=== PATIENT | female | born 1965 | race Caucasian/White ===

== ENCOUNTER → 2017-02-24 | Outpatient (CLI) | payer SELFPAY ==
[~2017-02-24] MED LIST: ATIVAN0.5 MG PO
== END | disposition home or self-care (01) ==
LOC: RESCLI 03:58
DX: S89.91XA Unspecified injury of right lower leg, initial encounter (principal); X58.XXXA Exposure to other specified factors, initial encounter; Y93.89 Activity, other specified; Y92.89 Other specified places as the place of occurrence of the external cause; Y99.8 Other external cause status

== ENCOUNTER → 2017-02-24 | Outpatient (CLI) | payer SELFPAY | END | disposition home or self-care (01) | LOC: RAD 16:38 | DX: M17.11 Unilateral primary osteoarthritis, right knee (principal) ==

== ENCOUNTER → 2017-03-17 | Outpatient (CLI) | payer SELFPAY | END | disposition home or self-care (01) | LOC: RESCLI 03:02 | DX: M79.89 Other specified soft tissue disorders (principal); E66.01 Morbid (severe) obesity due to excess calories; E78.5 Hyperlipidemia, unspecified; K21.9 Gastro-esophageal reflux disease without esophagitis; Z88.0 Allergy status to penicillin; Z88.1 Allergy status to other antibiotic agents; Z88.8 Allergy status to other drugs, medicaments and biological substances; Z91.013 Allergy to seafood ==

== ENCOUNTER → 2017-03-17 | Outpatient (CLI) | payer SELFPAY | END | disposition home or self-care (01) | LOC: US 12:20 | DX: M79.89 Other specified soft tissue disorders (principal); R60.0 Localized edema ==

== ENCOUNTER → 2017-03-24 | Outpatient (CLI) | payer SELFPAY | END | disposition home or self-care (01) | LOC: RESCLI 03:39 | DX: S89.91XD Unspecified injury of right lower leg, subsequent encounter (principal); I10 Essential (primary) hypertension; K21.9 Gastro-esophageal reflux disease without esophagitis; E78.5 Hyperlipidemia, unspecified; G62.9 Polyneuropathy, unspecified; Z88.0 Allergy status to penicillin; Z88.1 Allergy status to other antibiotic agents; Z91.013 Allergy to seafood; Z91.040 Latex allergy status; X58.XXXD Exposure to other specified factors, subsequent encounter ==

== ENCOUNTER → 2017-04-09 | Outpatient (CLI) | payer SELFPAY | END | disposition home or self-care (01) | LOC: MRI 02:56 | DX: M17.11 Unilateral primary osteoarthritis, right knee (principal); S83.241A Other tear of medial meniscus, current injury, right knee, initial encounter; X58.XXXA Exposure to other specified factors, initial encounter; Y93.89 Activity, other specified; Y92.89 Other specified places as the place of occurrence of the external cause; Y99.8 Other external cause status ==

== ENCOUNTER → 2017-04-24 | Outpatient (CLI) | payer SELFPAY | END | disposition home or self-care (01) | LOC: CANPRECLI → ORTHO 01:53 | DX: Z53.9 Procedure and treatment not carried out, unspecified reason (principal) ==

== ENCOUNTER → 2017-05-04 | Outpatient (CLI) | payer SELFPAY | END | disposition home or self-care (01) | LOC: RESCLI 03:13 | DX: S83.289D Other tear of lateral meniscus, current injury, unspecified knee, subsequent encounter (principal); M54.9 Dorsalgia, unspecified; E66.01 Morbid (severe) obesity due to excess calories; E78.5 Hyperlipidemia, unspecified; Z88.0 Allergy status to penicillin; Z88.1 Allergy status to other antibiotic agents; Z91.013 Allergy to seafood; Z91.040 Latex allergy status; Z88.8 Allergy status to other drugs, medicaments and biological substances; X58.XXXD Exposure to other specified factors, subsequent encounter ==

== ENCOUNTER → 2017-08-10 | Outpatient (CLI) | payer SELFPAY ==
[2017-08-10 09:32] LABS: BASO # 0.1 10*3/uL (0.0-0.1); BASO % 1.3 % (0.0-1.0); EOS # 0.2 10*3/uL (0.0-0.4); EOS % 2.2 % (1.0-4.0); HEMATOCRIT 41.3 % (37.0-47.0); HEMOGLOBIN 13.6 g/dl (12.0-16.0); LYMPH # 2.6 10*3/uL (1.3-4.4); LYMPH % 26.6 % (27.0-41.0); MEAN CELL VOLUME 96.9 fl (81.0-99.0); MEAN CORPUSCULAR HGB 31.9 pg (27.0-31.0); MEAN CORPUSCULAR HGB CONC 32.9 g/dl (33.0-37.0); MEAN PLATELET VOLUME 11.1 fl (9.6-12.3); MONO # 0.5 10*3/uL (0.1-1.0); MONO % 5.6 % (3.0-9.0); NEUT # 6.1 10*3/uL (2.3-7.9); PLATELET COUNT AUTOMATED 322 10*3/uL (130-400); RED BLOOD COUNT 4.26 10*6/uL (4.10-5.10); RED CELL DISTRI WIDTH 12.7 % (0-14.5); WHITE BLOOD COUNT 9.6 10*3/uL (4.8-10.8)
[2017-08-10 10:01] LABS: CHLORIDE 103 mmol/L (98-107); POTASSIUM 4.7 mmol/L (3.5-5.1); SODIUM 139 mmol/L (136-145)
[2017-08-10 10:25] LABS: ALBUMIN 3.9 gm/dl (3.1-4.5); ALKALINE PHOSPHATASE 92 U/L (45-117); BUN 18 mg/dl (7-24); CHOLESTEROL 233 mg/dL (<200); CREATININE 0.75 mg/dL (0.55-1.02); HDL CHOLESTEROL 60 mg/dl (40-60); LDL CHOLESTEROL 138 mg/dL (9-159); SGOT/AST 19 IU/L (3-35); SGPT/ALT 26 U/L (12-78); TOTAL PROTEIN 8.3 gm/dL (6.4-8.2); TRIGLYCERIDES 175 mg/dl (<150); VLDL CHOLESTEROL 35 mg/dL (6-40)
== END | disposition home or self-care (01) ==
LOC: LAB 08:56
PROVIDERS: Hospitalist
DX: E78.5 Hyperlipidemia, unspecified (principal); E66.01 Morbid (severe) obesity due to excess calories; R73.09 Other abnormal glucose; K76.89 Other specified diseases of liver

== ENCOUNTER → 2017-08-17 | Outpatient (CLI) | payer SELFPAY | END | disposition home or self-care (01) | LOC: RESCLI 02:38 | DX: M54.9 Dorsalgia, unspecified (principal); E66.01 Morbid (severe) obesity due to excess calories; E78.5 Hyperlipidemia, unspecified; G62.9 Polyneuropathy, unspecified; M62.838 Other muscle spasm; E53.8 Deficiency of other specified B group vitamins; M25.512 Pain in left shoulder; G89.29 Other chronic pain; Z88.0 Allergy status to penicillin; Z88.1 Allergy status to other antibiotic agents; Z88.8 Allergy status to other drugs, medicaments and biological substances; Z91.013 Allergy to seafood; Z91.040 Latex allergy status ==

== ENCOUNTER → 2017-12-23 | Outpatient (CLI) | payer SELFPAY | END | disposition home or self-care (01) | LOC: RESCLI 01:34 | DX: Z13.820 Encounter for screening for osteoporosis (principal); I10 Essential (primary) hypertension; M25.50 Pain in unspecified joint; E66.01 Morbid (severe) obesity due to excess calories; K21.9 Gastro-esophageal reflux disease without esophagitis; E78.5 Hyperlipidemia, unspecified; K58.8 Other irritable bowel syndrome; M54.5 Low back pain; G89.29 Other chronic pain; Z88.0 Allergy status to penicillin; Z78.0 Asymptomatic menopausal state; M54.2 Cervicalgia; R53.1 Weakness ==

== ENCOUNTER → 2018-04-01 | Outpatient (CLI) | payer SELFPAY | END | disposition home or self-care (01) | LOC: RESCLI 01:37 | DX: Z00.01 Encounter for general adult medical examination with abnormal findings (principal); L50.8 Other urticaria; M54.5 Low back pain; E66.01 Morbid (severe) obesity due to excess calories; K21.9 Gastro-esophageal reflux disease without esophagitis; E78.5 Hyperlipidemia, unspecified; I10 Essential (primary) hypertension; K58.8 Other irritable bowel syndrome; Z79.899 Other long term (current) drug therapy; Z88.0 Allergy status to penicillin; Z88.8 Allergy status to other drugs, medicaments and biological substances ==

== ENCOUNTER → 2018-04-06 | Outpatient (CLI) | payer SELFPAY | END | disposition home or self-care (01) | LOC: CT 12:29 | DX: Z00.00 Encounter for general adult medical examination without abnormal findings (principal); M54.5 Low back pain ==

== ENCOUNTER → 2018-04-15 | Outpatient (CLI) | payer SELFPAY ==
[2018-04-15 08:47] LABS: BASO # 0.1 10*3/uL (0.0-0.1); BASO % 1.2 % (0.0-1.0); EOS # 0.3 10*3/uL (0.0-0.4); EOS % 2.7 % (1.0-4.0); HEMATOCRIT 41.3 % (37.0-47.0); LYMPH # 3.1 10*3/uL (1.3-4.4); MEAN CELL VOLUME 98.8 fl (81.0-99.0); MEAN CORPUSCULAR HGB 31.1 pg (27.0-31.0); MEAN CORPUSCULAR HGB CONC 31.5 g/dl (33.0-37.0); MONO # 0.7 10*3/uL (0.1-1.0); MONO % 6.8 % (3.0-9.0); NEUT # 5.6 10*3/uL (2.3-7.9); NEUT % 57.1 % (47.0-73.0); PLATELET COUNT AUTOMATED 301 10*3/uL (130-400); RED BLOOD COUNT 4.18 10*6/uL (4.10-5.10); RED CELL DISTRI WIDTH 13.5 % (0-14.5); WHITE BLOOD COUNT 9.7 10*3/uL (4.8-10.8)
[2018-04-15 09:27] LABS: ALBUMIN 3.7 gm/dl (3.1-4.5); ALKALINE PHOSPHATASE 68 U/L (45-117); BUN 15 mg/dl (7-24); CHLORIDE 104 mmol/L (98-107); POTASSIUM 4.2 mmol/L (3.5-5.1); SGOT/AST 21 IU/L (3-35); SGPT/ALT 34 U/L (12-78); SODIUM 139 mmol/L (136-145); TOTAL PROTEIN 7.5 gm/dL (6.4-8.2)
== END | disposition home or self-care (01) ==
LOC: LAB 08:02
PROVIDERS: Internal Medicine
DX: Z00.01 Encounter for general adult medical examination with abnormal findings (principal); E78.5 Hyperlipidemia, unspecified; E66.01 Morbid (severe) obesity due to excess calories; I10 Essential (primary) hypertension; Z79.899 Other long term (current) drug therapy; Z88.0 Allergy status to penicillin

== ENCOUNTER → 2018-06-10 | Outpatient (CLI) | payer SELFPAY | END | disposition home or self-care (01) | LOC: RESCLI 04:41 | DX: K21.9 Gastro-esophageal reflux disease without esophagitis (principal); L50.8 Other urticaria; M54.5 Low back pain; E78.5 Hyperlipidemia, unspecified; I10 Essential (primary) hypertension; K58.8 Other irritable bowel syndrome; E66.01 Morbid (severe) obesity due to excess calories; Z79.899 Other long term (current) drug therapy ==

== ENCOUNTER → 2018-09-23 | Outpatient (CLI) | payer SELFPAY ==
[~2018-09-23] MED LIST changes: +B-12500 MC1 PO; +CELECOXIB200 M1 PO; +CLARITIN10 MG PO; +NEURONTIN300 MG PO; +PEPCID20 MG PO; +TRICOR48 MG PO
== END | disposition home or self-care (01) ==
LOC: RESCLI 01:55
DX: K21.9 Gastro-esophageal reflux disease without esophagitis (principal); R06.02 Shortness of breath; M54.5 Low back pain; E78.5 Hyperlipidemia, unspecified; I10 Essential (primary) hypertension; K58.8 Other irritable bowel syndrome; E66.01 Morbid (severe) obesity due to excess calories; Z79.82 Long term (current) use of aspirin

== ENCOUNTER → 2018-10-05 | Outpatient (CLI) | payer SELFPAY ==
--- NOTE | 2018-10-05 10:40 | NUR ---
INFORMED SIGNED CONSENT OBTAINED FOR LEXISCAN STRESS TEST WITH DR SCHOFIELD. RESTING EKG NSR HR 91 BP 122/80 IN SUPINE POSTION, STANDING HR 99 BP 116/76. PT COMPLETED 3:15 A RENUKA PROTOCOL WITH PT COMPLETING STAGE I AT 2.5 MPH AND A 10% GRADE. PT REACHED A PEAK HR OF 154 WHICH REPRESENTS 92% OF PREDICTED MAXIMUM AND A PEAK BP OF 140/62. PT HAD ONE COUPLET IN RECOVERY. NO ST CHANGES. TEST TERMINATED DUE TO FATIUGE. LAST RECOVERY HR OF 109 BP 126/74. PT IN STABLE CONDITION, AWAITNG NUCLEAR IMAGES.
== END | disposition home or self-care (01) ==
LOC: CARD 01:46
DX: R06.02 Shortness of breath (principal)

== ENCOUNTER → 2018-10-08 | Outpatient (CLI) | payer SELFPAY ==
[2018-10-08 09:40] LABS: BASO # 0.2 10*3/uL (0.0-0.1); BASO % 1.8 % (0.0-1.0); EOS # 0.2 10*3/uL (0.0-0.4); EOS % 2.7 % (1.0-4.0); HEMATOCRIT 41.5 % (37.0-47.0); HEMOGLOBIN 13.3 g/dl (12.0-16.0); LYMPH # 2.8 10*3/uL (1.3-4.4); LYMPH % 32.9 % (27.0-41.0); MEAN CELL VOLUME 99.5 fl (81.0-99.0); MEAN CORPUSCULAR HGB 31.9 pg (27.0-31.0); MEAN PLATELET VOLUME 10.9 fl (9.6-12.3); MONO # 0.6 10*3/uL (0.1-1.0); MONO % 7.3 % (3.0-9.0); NEUT # 4.7 10*3/uL (2.3-7.9); NEUT % 55.1 % (47.0-73.0); PLATELET COUNT AUTOMATED 323 10*3/uL (130-400); RED BLOOD COUNT 4.17 10*6/uL (4.10-5.10); RED CELL DISTRI WIDTH 13.2 % (0-14.5); WHITE BLOOD COUNT 8.5 10*3/uL (4.8-10.8)
[2018-10-08 10:09] LABS: ALBUMIN 3.9 gm/dl (3.1-4.5); ALKALINE PHOSPHATASE 84 U/L (45-117); BUN 16 mg/dl (7-24); CHLORIDE 106 mmol/L (98-107); CHOLESTEROL 208 mg/dL (<200); CREATININE 0.75 mg/dL (0.55-1.02); HDL CHOLESTEROL 52 mg/dl (40-60); LDL CHOLESTEROL 116 mg/dL (9-159); POTASSIUM 4.6 mmol/L (3.5-5.1); SGOT/AST 32 IU/L (3-35); SGPT/ALT 48 U/L (12-78); SODIUM 142 mmol/L (136-145); TOTAL PROTEIN 7.8 gm/dL (6.4-8.2); TRIGLYCERIDES 200 mg/dl (<150); VLDL CHOLESTEROL 40 mg/dL (6-40)
[2018-10-08 11:02] LABS: VITAMIN D, 25-HYDROXY 21.7 ng/mL (30-100)
== END | disposition home or self-care (01) ==
LOC: LAB 09:00
PROVIDERS: Internal Medicine
DX: E66.01 Morbid (severe) obesity due to excess calories (principal); E78.5 Hyperlipidemia, unspecified; R06.02 Shortness of breath

== ENCOUNTER → 2018-10-28 | Outpatient (CLI) | payer SELFPAY | END | disposition home or self-care (01) | LOC: RESCLI 02:54 | DX: K21.9 Gastro-esophageal reflux disease without esophagitis (principal); R06.02 Shortness of breath; M54.5 Low back pain; E78.5 Hyperlipidemia, unspecified; I10 Essential (primary) hypertension; K58.8 Other irritable bowel syndrome; E66.01 Morbid (severe) obesity due to excess calories; R73.03 Prediabetes; K76.0 Fatty (change of) liver, not elsewhere classified; Z79.899 Other long term (current) drug therapy; Z88.0 Allergy status to penicillin; Z88.8 Allergy status to other drugs, medicaments and biological substances; Z91.013 Allergy to seafood; Z91.040 Latex allergy status ==

== ENCOUNTER → 2019-03-02 | Outpatient (CLI) | payer SELFPAY | END | disposition home or self-care (01) | LOC: RESCLI 00:12 | DX: R21 Rash and other nonspecific skin eruption (principal); M54.5 Low back pain; L02.91 Cutaneous abscess, unspecified; L50.8 Other urticaria; Z79.899 Other long term (current) drug therapy ==

== ENCOUNTER → 2019-03-11 | Outpatient (CLI) | payer SELFPAY | END | disposition home or self-care (01) | LOC: RESCLI 13:09 | DX: M54.5 Low back pain (principal); L50.9 Urticaria, unspecified; Z79.899 Other long term (current) drug therapy; Z88.0 Allergy status to penicillin; Z91.013 Allergy to seafood; Z91.040 Latex allergy status ==

== ENCOUNTER → 2019-04-08 | Outpatient (CLI) | payer SELFPAY ==
[2019-04-08 16:13] LABS: BILIRUBIN NEGATIVE (NEGATIVE); BLOOD NEGATIVE (NEGATIVE); CLARITY CLEAR (CLEAR); COLOR YELLOW (YELLOW); GLUCOSE NEGATIVE (NEGATIVE); KETONE NEGATIVE (NEGATIVE); LEUKO ESTERASE TRACE (NEGATIVE); NITRITE NEGATIVE (NEGATIVE); PH 5.5 (5.0-9.0); SPECIFIC GRAVITY 1.015 (1.005-1.030); UROBILINOGEN 0.2 E.U./dl (0.2-1.0)
[2019-04-08 16:24] LABS: BACTERIA 1+
== END | disposition home or self-care (01) ==
LOC: RESCLI 00:09
PROVIDERS: Internal Medicine
DX: Z12.11 Encounter for screening for malignant neoplasm of colon (principal); Z12.4 Encounter for screening for malignant neoplasm of cervix; E78.2 Mixed hyperlipidemia; M54.5 Low back pain; E53.8 Deficiency of other specified B group vitamins; K21.9 Gastro-esophageal reflux disease without esophagitis; I10 Essential (primary) hypertension; R42 Dizziness and giddiness; M54.6 Pain in thoracic spine; G89.29 Other chronic pain; Z79.899 Other long term (current) drug therapy; Z88.8 Allergy status to other drugs, medicaments and biological substances

== ENCOUNTER → 2019-06-23 | Outpatient (CLI) | payer SELFPAY | END | disposition home or self-care (01) | LOC: RESCLI 01:59 | DX: Z23 Encounter for immunization (principal); B37.3 Candidiasis of vulva and vagina; H81.13 Benign paroxysmal vertigo, bilateral; G62.9 Polyneuropathy, unspecified; G89.29 Other chronic pain; K21.9 Gastro-esophageal reflux disease without esophagitis; E78.5 Hyperlipidemia, unspecified; R26.9 Unspecified abnormalities of gait and mobility; M19.90 Unspecified osteoarthritis, unspecified site; Z79.899 Other long term (current) drug therapy ==

== ENCOUNTER → 2019-10-04 | Outpatient (CLI) | payer SELFPAY | END | disposition home or self-care (01) | LOC: RESCLI 01:20 | DX: H81.13 Benign paroxysmal vertigo, bilateral (principal); G62.9 Polyneuropathy, unspecified; G89.29 Other chronic pain; K21.9 Gastro-esophageal reflux disease without esophagitis; E78.5 Hyperlipidemia, unspecified; N89.8 Other specified noninflammatory disorders of vagina; Z79.899 Other long term (current) drug therapy; Z90.89 Acquired absence of other organs; Z88.0 Allergy status to penicillin; Z88.8 Allergy status to other drugs, medicaments and biological substances ==

== ENCOUNTER → 2019-10-06 | Outpatient (CLI) | payer SELFPAY ==
[2019-10-06 08:23] LABS: BASO # 0.1 10*3/uL (0.0-0.1); BASO % 1.3 % (0.0-1.0); EOS # 0.3 10*3/uL (0.0-0.4); EOS % 3.2 % (1.0-4.0); HEMATOCRIT 40.3 % (37.0-47.0); HEMOGLOBIN 12.7 g/dl (12.0-16.0); LYMPH # 3.6 10*3/uL (1.3-4.4); LYMPH % 36.2 % (27.0-41.0); MEAN CELL VOLUME 98.8 fl (81.0-99.0); MEAN CORPUSCULAR HGB 31.1 pg (27.0-31.0); MEAN CORPUSCULAR HGB CONC 31.5 g/dl (33.0-37.0); MEAN PLATELET VOLUME 10.6 fl (9.6-12.3); MONO # 0.6 10*3/uL (0.1-1.0); MONO % 6.5 % (3.0-9.0); NEUT # 5.2 10*3/uL (2.3-7.9); NEUT % 52.6 % (47.0-73.0); PLATELET COUNT AUTOMATED 316 10*3/uL (130-400); RED BLOOD COUNT 4.08 10*6/uL (4.10-5.10); RED CELL DISTRI WIDTH 13.2 % (0-14.5); WHITE BLOOD COUNT 9.9 10*3/uL (4.8-10.8)
[2019-10-06 08:55] LABS: ALBUMIN 3.5 gm/dl (3.1-4.5); BUN 20 mg/dl (7-24); CHLORIDE 107 mmol/L (98-107); POTASSIUM 4.8 mmol/L (3.5-5.1); SODIUM 139 mmol/L (136-145)
[2019-10-06 09:06] LABS: ALKALINE PHOSPHATASE 89 U/L (45-117); CHOLESTEROL 223 mg/dL (<200); CREATININE 0.78 mg/dL (0.55-1.02); HDL CHOLESTEROL 45 mg/dl (40-60); LDL CHOLESTEROL 135 mg/dL (9-159); SGOT/AST 17 IU/L (3-35); SGPT/ALT 28 U/L (12-78); TOTAL PROTEIN 7.4 gm/dL (6.4-8.2); TRIGLYCERIDES 216 mg/dl (<150); VLDL CHOLESTEROL 43 mg/dL (6-40)
== END | disposition home or self-care (01) ==
LOC: LAB 07:51
PROVIDERS: Hospitalist
DX: H81.13 Benign paroxysmal vertigo, bilateral (principal)

== ENCOUNTER → 2020-05-07 | Outpatient (CLI) | payer SELFPAY ==
[2020-05-07 16:07] LABS: BACTERIA 1+; BILIRUBIN NEGATIVE; BLOOD NEGATIVE (NEGATIVE); CLARITY CLEAR (CLEAR); COLOR YELLOW (YELLOW); EPITHELIAL CELLS 21-30; GLUCOSE NEGATIVE; KETONE NEGATIVE; LEUKO ESTERASE TRACE (NEGATIVE); NITRITE NEGATIVE (NEGATIVE); UROBILINOGEN 0.2 E.U./dl (0.0-1.0)
== END | disposition home or self-care (01) ==
LOC: RESCLI 01:00
PROVIDERS: ATTEND Internal Medicine Nephrology
DX: R10.9 Unspecified abdominal pain (principal); G62.9 Polyneuropathy, unspecified; E78.5 Hyperlipidemia, unspecified; B37.2 Candidiasis of skin and nail; M54.5 Low back pain; G89.29 Other chronic pain; K21.9 Gastro-esophageal reflux disease without esophagitis; I10 Essential (primary) hypertension; H81.10 Benign paroxysmal vertigo, unspecified ear; J30.2 Other seasonal allergic rhinitis; M19.90 Unspecified osteoarthritis, unspecified site; E66.01 Morbid (severe) obesity due to excess calories; Z68.42 Body mass index [BMI] 45.0-49.9, adult; Z79.899 Other long term (current) drug therapy; Z98.890 Other specified postprocedural states

== ENCOUNTER → 2020-08-20 | Outpatient (CLI) | payer SELFPAY | END | disposition home or self-care (01) | LOC: RESCLI 01:05 | PROVIDERS: ATTEND Internal Medicine Nephrology | DX: G62.9 Polyneuropathy, unspecified (principal); E78.5 Hyperlipidemia, unspecified; B37.2 Candidiasis of skin and nail; M54.5 Low back pain; G89.29 Other chronic pain; K21.9 Gastro-esophageal reflux disease without esophagitis; I10 Essential (primary) hypertension; H81.10 Benign paroxysmal vertigo, unspecified ear; E66.01 Morbid (severe) obesity due to excess calories; R29.898 Other symptoms and signs involving the musculoskeletal system; G56.03 Carpal tunnel syndrome, bilateral upper limbs; Z23 Encounter for immunization; Z68.42 Body mass index [BMI] 45.0-49.9, adult; Z79.899 Other long term (current) drug therapy; Z88.8 Allergy status to other drugs, medicaments and biological substances; Z98.890 Other specified postprocedural states ==

== ENCOUNTER → 2020-09-27 | Outpatient (CLI) | payer SELFPAY | END | disposition home or self-care (01) | LOC: RESCLI 00:17 | PROVIDERS: ATTEND Internal Medicine Nephrology | DX: G62.9 Polyneuropathy, unspecified (principal); M47.816 Spondylosis without myelopathy or radiculopathy, lumbar region; M54.5 Low back pain; E78.5 Hyperlipidemia, unspecified; K21.9 Gastro-esophageal reflux disease without esophagitis; H81.10 Benign paroxysmal vertigo, unspecified ear; E66.01 Morbid (severe) obesity due to excess calories; R29.898 Other symptoms and signs involving the musculoskeletal system; G56.03 Carpal tunnel syndrome, bilateral upper limbs; G89.4 Chronic pain syndrome; I10 Essential (primary) hypertension; Z68.42 Body mass index [BMI] 45.0-49.9, adult; Z79.899 Other long term (current) drug therapy; Z88.0 Allergy status to penicillin; Z91.013 Allergy to seafood; Z88.1 Allergy status to other antibiotic agents; Z88.2 Allergy status to sulfonamides; Z88.8 Allergy status to other drugs, medicaments and biological substances ==

== ENCOUNTER → 2021-10-30 | Outpatient (CLI) | payer SELFPAY | END | disposition home or self-care (01) | LOC: RESCLI 00:32 | PROVIDERS: ATTEND Internal Medicine Nephrology | DX: Z23 Encounter for immunization (principal); R60.0 Localized edema; B37.3 Candidiasis of vulva and vagina; E78.5 Hyperlipidemia, unspecified; E55.9 Vitamin D deficiency, unspecified; R53.82 Chronic fatigue, unspecified; Z79.899 Other long term (current) drug therapy ==

== ENCOUNTER → 2021-10-31 | Outpatient (CLI) | payer SELFPAY ==
[2021-10-31 08:22] LABS: BASO # 0.1 10*3/uL (0.0-0.1); EOS # 0.2 10*3/uL (0.0-0.4); EOS % 2.3 % (1.0-4.0); HEMATOCRIT 41.8 % (37.0-47.0); LYMPH # 2.6 10*3/uL (1.3-4.4); LYMPH % 24.8 % (27.0-41.0); MEAN CELL VOLUME 97.7 fl (81.0-99.0); MEAN CORPUSCULAR HGB 31.3 pg (27.0-31.0); MEAN CORPUSCULAR HGB CONC 32.1 g/dl (33.0-37.0); MEAN PLATELET VOLUME 10.4 fl (9.6-12.3); MONO # 0.7 10*3/uL (0.1-1.0); MONO % 6.2 % (3.0-9.0); NEUT # 6.9 10*3/uL (2.3-7.9); NEUT % 65.5 % (47.0-73.0); PLATELET COUNT AUTOMATED 306 10*3/uL (130-400); RED BLOOD COUNT 4.28 10*6/uL (4.10-5.10); RED CELL DISTRI WIDTH 12.9 % (0-14.5); WHITE BLOOD COUNT 10.6 10*3/uL (4.8-10.8)
[2021-10-31 08:23] LABS: BILIRUBIN Negative (Negative); BLOOD Negative (Negative); CLARITY Clear (Clear); COLOR Yellow (Yellow); GLUCOSE Negative (Negative); KETONE Negative (Negative); LEUKO ESTERASE Trace (Negative); NITRITE Negative (Negative); PH 5.5 (4.5-8.0); SPECIFIC GRAVITY <= 1.005 (1.001-1.030); UROBILINOGEN 0.2 E.U./dl (0.0-1.0)
[2021-10-31 08:40] LABS: BUN 17 mg/dl (7-24); CHLORIDE 104 mmol/L (98-107); CHOLESTEROL 154 mg/dL (<200); CREATININE 0.68 mg/dL (0.55-1.02); POTASSIUM 4.8 mmol/L (3.5-5.1); SGOT/AST 13 IU/L (3-35); SGPT/ALT 23 U/L (12-78); SODIUM 137 mmol/L (136-145); TRIGLYCERIDES 211 mg/dl (<150)
[2021-10-31 08:50] LABS: ALKALINE PHOSPHATASE 91 U/L (45-117); LDL CHOLESTEROL 54 mg/dL (9-159); TOTAL PROTEIN 8.1 gm/dL (6.4-8.2)
[2021-10-31 09:51] LABS: BACTERIA 2+
[2021-10-31 12:17] LABS: VITAMIN D, 25-HYDROXY 26.1 ng/mL (30-100)
== END | disposition home or self-care (01) ==
LOC: LAB 07:55
PROVIDERS: Hospitalist; ATTEND Student in an Organized Health Care Education/Training Program
DX: R53.82 Chronic fatigue, unspecified (principal); E78.5 Hyperlipidemia, unspecified; E55.9 Vitamin D deficiency, unspecified; B37.3 Candidiasis of vulva and vagina

== ENCOUNTER → 2021-11-05 | Outpatient (CLI) | payer SELFPAY | END | disposition home or self-care (01) | LOC: LAB 13:56 | PROVIDERS: ATTEND Internal Medicine | DX: R73.09 Other abnormal glucose (principal) ==

== ENCOUNTER → 2022-01-29 | Outpatient (CLI) | payer SELFPAY | END | disposition home or self-care (01) | LOC: RESCLI 01:58 | PROVIDERS: ATTEND Internal Medicine Nephrology | DX: K21.9 Gastro-esophageal reflux disease without esophagitis (principal); E55.9 Vitamin D deficiency, unspecified; M47.899 Other spondylosis, site unspecified; G89.4 Chronic pain syndrome; Z79.899 Other long term (current) drug therapy ==

== ENCOUNTER → 2022-04-21 | Outpatient (CLI) | payer SELFPAY | END | disposition home or self-care (01) | LOC: RESCLI 02:03 | PROVIDERS: ATTEND Internal Medicine | DX: E66.01 Morbid (severe) obesity due to excess calories (principal); E78.5 Hyperlipidemia, unspecified; K21.9 Gastro-esophageal reflux disease without esophagitis; E55.9 Vitamin D deficiency, unspecified; M47.899 Other spondylosis, site unspecified; G62.9 Polyneuropathy, unspecified; M47.816 Spondylosis without myelopathy or radiculopathy, lumbar region; M25.78 Osteophyte, vertebrae; G89.4 Chronic pain syndrome; B37.3 Candidiasis of vulva and vagina; Z79.899 Other long term (current) drug therapy; Z88.0 Allergy status to penicillin; Z88.8 Allergy status to other drugs, medicaments and biological substances ==

== ENCOUNTER → 2022-10-20 | Outpatient (CLI) | payer SELFPAY ==
[2022-10-20 10:26] LABS: BASO # 0.1 10*3/uL (0.0-0.1); BASO % 1.1 % (0.0-1.0); EOS # 0.2 10*3/uL (0.0-0.4); EOS % 1.7 % (1.0-4.0); HEMATOCRIT 40.4 % (37.0-47.0); LYMPH # 2.8 10*3/uL (1.3-4.4); LYMPH % 26.7 % (27.0-41.0); MEAN CELL VOLUME 96.9 fl (81.0-99.0); MEAN CORPUSCULAR HGB 31.4 pg (27.0-31.0); MEAN CORPUSCULAR HGB CONC 32.4 g/dl (33.0-37.0); MEAN PLATELET VOLUME 10.3 fl (9.6-12.3); MONO # 0.6 10*3/uL (0.1-1.0); MONO % 5.5 % (3.0-9.0); NEUT # 6.7 10*3/uL (2.3-7.9); NEUT % 64.7 % (47.0-73.0); PLATELET COUNT AUTOMATED 307 10*3/uL (130-400); RED BLOOD COUNT 4.17 10*6/uL (4.10-5.10); RED CELL DISTRI WIDTH 13.1 % (0-14.5); WHITE BLOOD COUNT 10.3 10*3/uL (4.8-10.8)
[2022-10-20 10:49] LABS: ALKALINE PHOSPHATASE 85 U/L (46-116); BUN 17 mg/dl (9-23); CHLORIDE 103 mmol/L (98-107); CHOLESTEROL 146 mg/dL (<200); LDL CHOLESTEROL 39 mg/dL (9-159); SGPT/ALT 23 U/L (10-49); TOTAL PROTEIN 7.3 gm/dL (6.0-8.0); TRIGLYCERIDES 299 mg/dl (<150)
== END | disposition home or self-care (01) ==
LOC: RESCLI 04:36
PROVIDERS: Student in an Organized Health Care Education/Training Program; ATTEND Internal Medicine
DX: K21.9 Gastro-esophageal reflux disease without esophagitis (principal); E78.5 Hyperlipidemia, unspecified; E55.9 Vitamin D deficiency, unspecified; G89.4 Chronic pain syndrome; M85.80 Other specified disorders of bone density and structure, unspecified site; Z88.1 Allergy status to other antibiotic agents; Z88.8 Allergy status to other drugs, medicaments and biological substances; Z88.2 Allergy status to sulfonamides; Z88.0 Allergy status to penicillin; Z98.890 Other specified postprocedural states; Z82.49 Family history of ischemic heart disease and other diseases of the circulatory system; Z79.899 Other long term (current) drug therapy

== ENCOUNTER → 2023-04-23 | Outpatient (CLI) | payer SELFPAY | END | disposition home or self-care (01) | LOC: RESCLI 08:37 | PROVIDERS: ATTEND Internal Medicine | DX: K21.9 Gastro-esophageal reflux disease without esophagitis (principal); E55.9 Vitamin D deficiency, unspecified; E78.5 Hyperlipidemia, unspecified; J30.2 Other seasonal allergic rhinitis; H81.13 Benign paroxysmal vertigo, bilateral; M47.899 Other spondylosis, site unspecified; G89.4 Chronic pain syndrome; Z98.890 Other specified postprocedural states; Z88.0 Allergy status to penicillin; Z88.8 Allergy status to other drugs, medicaments and biological substances; Z79.899 Other long term (current) drug therapy ==

== ENCOUNTER → 2023-10-22 | Outpatient (CLI) | payer SELFPAY | END | disposition home or self-care (01) | LOC: LAB 07:59 → RESCLI 07:59 | PROVIDERS: Student in an Organized Health Care Education/Training Program; ATTEND Internal Medicine | DX: E78.5 Hyperlipidemia, unspecified (principal); R53.83 Other fatigue; E55.9 Vitamin D deficiency, unspecified; G62.9 Polyneuropathy, unspecified; H81.10 Benign paroxysmal vertigo, unspecified ear; I10 Essential (primary) hypertension; K21.9 Gastro-esophageal reflux disease without esophagitis; J30.2 Other seasonal allergic rhinitis; M47.899 Other spondylosis, site unspecified; H81.13 Benign paroxysmal vertigo, bilateral; Z79.899 Other long term (current) drug therapy; Z88.8 Allergy status to other drugs, medicaments and biological substances ==

== ENCOUNTER 2024-08-10 05:21 | Inpatient (IN) | payer SELFPAY ==
[~2024-08-10] VITALS: Ht 147.3 cm; Wt 102.1 kg
[2024-08-10 05:39] VITALS: BP 141/47
[2024-08-10 06:02] LABS: BILIRUBIN Negative (Negative); BLOOD 2+ (Negative); CLARITY Turbid (Clear); COLOR Yellow (Yellow); GLUCOSE Negative (Negative); KETONE 2+ (Negative); LEUKO ESTERASE 3+ (Negative); NITRITE Positive (Negative); PH 5.5 (4.5-8.0); SPECIFIC GRAVITY 1.015 (1.001-1.030); UROBILINOGEN 0.2 E.U./dl (0.0-1.0)
[2024-08-10 06:11] LABS: HEMATOCRIT 36.2 % (37.0-47.0); MEAN CELL VOLUME 97.8 fl (81.0-99.0); MEAN CORPUSCULAR HGB 32.2 pg (27.0-31.0); MEAN CORPUSCULAR HGB CONC 32.9 g/dl (33.0-37.0); MEAN PLATELET VOLUME 10.2 fl (9.6-12.3); PLATELET COUNT AUTOMATED 301 10*3/uL (130-400); RED CELL DISTRI WIDTH 13.1 % (0-14.5); WHITE BLOOD COUNT 21.1 10*3/uL (4.8-10.8)
[2024-08-10 06:12] LABS: MANUAL DIFF REFLEX YES
[2024-08-10 06:26] LABS: BUN 16 mg/dl (9-23); CHLORIDE 99 mmol/L (98-107); POTASSIUM 3.8 mmol/L (3.4-5.1)
[2024-08-10 06:37] LABS: BACTERIA 4+; WBC TNTC wbc/hpf (0-5)
[2024-08-10 06:51] LABS: BASOPHILS 1 % (0-1); OVALOCYTES FEW; PLATELET SUFFICIENCY NORMAL (NORMAL); POLYCHROMASIA SLIGHT; ROULEAUX SLIGHT; TOTAL CELLS COUNTED 100 #CELLS; TOXIC GRANULATION SLIGHT; VACUOLATION OF NEUTROPHILS SLIGHT
[2024-08-10] MEDS ORDERED: SODIUM CHLORIDE 0.9% 1,000 ML IV SCH (07:00)
[2024-08-10] MEDS ORDERED: Ceftriaxone Sodium 1 GM/10 ML SYR IV ONE (07:00)
[2024-08-10] MEDS ORDERED: TEMAZEPAM 15 MG CAP PO PRN (07:25)
[2024-08-10] MEDS ORDERED: Ondansetron Hydrochloride 4 MG/2 ML VIAL IV PRN (07:25)
[2024-08-10] MEDS ORDERED: Acetaminophen/Hydrocodone 5 MG/325 MG TABLET PO PRN (07:25)
[2024-08-10] MEDS ORDERED: ACETAMINOPHEN 325 MG TAB PO PRN (07:25)
[2024-08-10] MEDS ORDERED: BISACODYL 5 MG TAB PO PRN (07:25)
[2024-08-10] MEDS ORDERED: Enoxaparin Sodium 40 MG/0.4 ML SYR SC SCH (10:00)
[2024-08-10] MEDS ORDERED: MELOXICAM15 MG PO (17:15)
[2024-08-10 17:31] VITALS: BP 129/59
[2024-08-10 18:10] VITALS: BP 111/41
[2024-08-10 20:00] VITALS: BP 119/50; BP 135/45
[2024-08-10] MEDS ORDERED: LIPITOR40 MG PO (22:55)
[2024-08-11] VITALS: BP 118/48
[2024-08-11 06:31] LABS: HEMATOCRIT 32.2 % (37.0-47.0); MEAN CELL VOLUME 97.3 fl (81.0-99.0); MEAN CORPUSCULAR HGB 31.7 pg (27.0-31.0); MEAN CORPUSCULAR HGB CONC 32.6 g/dl (33.0-37.0); MEAN PLATELET VOLUME 10.4 fl (9.6-12.3); PLATELET COUNT AUTOMATED 251 10*3/uL (130-400); RED BLOOD COUNT 3.31 10*6/uL (4.10-5.10); RED CELL DISTRI WIDTH 13.6 % (0-14.5); WHITE BLOOD COUNT 21.3 10*3/uL (4.8-10.8)
[2024-08-11 06:55] LABS: ALKALINE PHOSPHATASE 91 U/L (46-116); BUN 13 mg/dl (9-23); CHLORIDE 103 mmol/L (98-107); POTASSIUM 3.5 mmol/L (3.4-5.1); SGPT/ALT 72 U/L (5-49); TOTAL PROTEIN 7.4 gm/dL (6.0-8.0)
[2024-08-11] MEDS ORDERED: Ceftriaxone Sodium 1 GM in SYRINGE INFUSION 10 ML IV SCH (07:00)
[2024-08-11 07:09] LABS: MANUAL DIFF REFLEX YES
[2024-08-11 07:49] LABS: TOTAL CELLS COUNTED 100 #CELLS
[2024-08-11 07:50] LABS: PLATELET SUFFICIENCY NORMAL (NORMAL)
[2024-08-11 08:00] VITALS: BP 114/51
[2024-08-11] MEDS ORDERED: SODIUM CHLORIDE 0.9% 1,000 ML IV ONE (08:10)
[2024-08-11] MEDS ORDERED: NEURONTIN400 MG PO (09:24)
[2024-08-11] MEDS ORDERED: Meropenem 500 MG IV SCH (09:40)
[2024-08-11] MEDS ORDERED: LORATADINE 10 MG TAB PO SCH (10:00)
[2024-08-11] MEDS ORDERED: GABAPENTIN 300 MG CAP PO SCH (10:00)
[2024-08-11] MEDS ORDERED: ATORVASTATIN CALCIUM 40 MG TABLET PO SCH (10:00)
[2024-08-11] MEDS ORDERED: Meloxicam 15 MG TAB PO SCH (10:00)
[2024-08-11 12:00] VITALS: BP 110/41
[2024-08-11] MEDS ORDERED: Meropenem 50 ML IV SCH (12:00)
[2024-08-11] MEDS ORDERED: GABAPENTIN 400 MG CAP PO SCH (14:30)
[2024-08-11 16:00] VITALS: BP 113/49
[2024-08-11 20:00] VITALS: BP 128/59
[2024-08-12] VITALS: BP 102/55
[2024-08-12 06:32] LABS: BUN 12 mg/dl (9-23); CHLORIDE 105 mmol/L (98-107); POTASSIUM 3.5 mmol/L (3.4-5.1)
[2024-08-12 07:21] LABS: BASO # 0.1 10*3/uL (0.0-0.1); BASO % 0.6 % (0.0-1.0); EOS # 0.2 10*3/uL (0.0-0.4); EOS % 1.3 % (1.0-4.0); HEMATOCRIT 30.9 % (37.0-47.0); MEAN CELL VOLUME 98.4 fl (81.0-99.0); MEAN CORPUSCULAR HGB 31.5 pg (27.0-31.0); MEAN PLATELET VOLUME 11.2 fl (9.6-12.3); MONO # 1.4 10*3/uL (0.1-1.0); MONO % 8.6 % (3.0-9.0); NEUT % 76.4 % (47.0-73.0); PLATELET COUNT AUTOMATED 255 10*3/uL (130-400); RED BLOOD COUNT 3.14 10*6/uL (4.10-5.10); WHITE BLOOD COUNT 15.8 10*3/uL (4.8-10.8)
[2024-08-12 08:00] VITALS: BP 110/63
[2024-08-12] MEDS ORDERED: Atropine Sulfate/Diphenoxyla 1 TAB TAB PO ONE (08:30)
[2024-08-12] MEDS ORDERED: CALCIUM POLYCARBOPHIL 625 MG TAB PO SCH (10:00)
[2024-08-12 12:00] VITALS: BP 103/54
[2024-08-12 16:00] VITALS: BP 125/67
[2024-08-12 20:00] VITALS: BP 111/64
[2024-08-13] VITALS: BP 108/52
[2024-08-13 06:35] LABS: BASO # 0.1 10*3/uL (0.0-0.1); BASO % 0.9 % (0.0-1.0); EOS # 0.3 10*3/uL (0.0-0.4); EOS % 3.3 % (1.0-4.0); HEMATOCRIT 31.2 % (37.0-47.0); MEAN CELL VOLUME 98.1 fl (81.0-99.0); MEAN CORPUSCULAR HGB 31.1 pg (27.0-31.0); MEAN CORPUSCULAR HGB CONC 31.7 g/dl (33.0-37.0); MEAN PLATELET VOLUME 10.7 fl (9.6-12.3); MONO # 0.8 10*3/uL (0.1-1.0); MONO % 7.4 % (3.0-9.0); NEUT # 6.9 10*3/uL (2.3-7.9); NEUT % 67.6 % (47.0-73.0); PLATELET COUNT AUTOMATED 318 10*3/uL (130-400); RED BLOOD COUNT 3.18 10*6/uL (4.10-5.10); RED CELL DISTRI WIDTH 13.9 % (0-14.5); WHITE BLOOD COUNT 10.1 10*3/uL (4.8-10.8)
[2024-08-13 06:57] LABS: BUN 13 mg/dl (9-23); CHLORIDE 106 mmol/L (98-107); POTASSIUM 3.6 mmol/L (3.4-5.1)
[2024-08-13 08:00] VITALS: BP 131/54
[2024-08-13 12:00] VITALS: BP 139/66
[2024-08-13] MEDS ORDERED: ZETIA10 MG PO (14:15)
[2024-08-13] MEDS ORDERED: Meclizine25 MG PO (14:16)
[2024-08-13] MEDS ORDERED: IBU800 M1 PO (14:17)
[2024-08-13 16:00] VITALS: BP 121/60
[2024-08-13 20:00] VITALS: BP 123/70
[2024-08-14] VITALS: BP 100/48
[2024-08-14 08:00] VITALS: BP 122/59
[2024-08-14] MEDS ORDERED: OMNICEF300 MG PO (12:12)
== END 2024-08-14 14:41 | disposition home or self-care (01) | DRG 872 ==
LOC: ED 05:21 → EDHOLD 07:16 → 4E 17:53
PROVIDERS: Internal Medicine; Student in an Organized Health Care Education/Training Program; ADMIT Internal Medicine; ATTEND Internal Medicine
DX: A41.9 Sepsis, unspecified organism (principal); N30.00 Acute cystitis without hematuria; E87.1 Hypo-osmolality and hyponatremia; E44.0 Moderate protein-calorie malnutrition; Z68.42 Body mass index [BMI] 45.0-49.9, adult; D53.9 Nutritional anemia, unspecified; M54.50 Low back pain, unspecified; G62.9 Polyneuropathy, unspecified; R73.9 Hyperglycemia, unspecified; E78.2 Mixed hyperlipidemia; G89.29 Other chronic pain; H81.13 Benign paroxysmal vertigo, bilateral; K21.9 Gastro-esophageal reflux disease without esophagitis; Z88.1 Allergy status to other antibiotic agents; Z88.0 Allergy status to penicillin; Z88.8 Allergy status to other drugs, medicaments and biological substances; Z91.09 Other allergy status, other than to drugs and biological substances; Z79.899 Other long term (current) drug therapy; Z79.01 Long term (current) use of anticoagulants; Z79.2 Long term (current) use of antibiotics; Z98.891 History of uterine scar from previous surgery; Z83.3 Family history of diabetes mellitus; Z82.49 Family history of ischemic heart disease and other diseases of the circulatory system; Z82.3 Family history of stroke; Z81.8 Family history of other mental and behavioral disorders

== ENCOUNTER → 2024-08-25 | Outpatient (CLI) | payer SELFPAY ==
[~2024-08-25] MED LIST changes: +IBU800 M1 PO; +LIPITOR40 MG PO; +MELOXICAM15 MG PO; +Meclizine25 MG PO; +NEURONTIN400 MG PO; +OMNICEF300 MG PO; +Ondansetron4 MG PO; +ZETIA10 MG PO
== END | disposition home or self-care (01) ==
LOC: RESCLI 03:00
PROVIDERS: ATTEND Family Medicine
DX: E55.9 Vitamin D deficiency, unspecified (principal); K21.9 Gastro-esophageal reflux disease without esophagitis; E78.5 Hyperlipidemia, unspecified; J30.2 Other seasonal allergic rhinitis; M47.899 Other spondylosis, site unspecified; G89.4 Chronic pain syndrome; H81.13 Benign paroxysmal vertigo, bilateral; N39.0 Urinary tract infection, site not specified; L30.9 Dermatitis, unspecified; Z12.11 Encounter for screening for malignant neoplasm of colon; Z12.31 Encounter for screening mammogram for malignant neoplasm of breast; Z88.0 Allergy status to penicillin; Z88.2 Allergy status to sulfonamides; Z88.8 Allergy status to other drugs, medicaments and biological substances; Z79.899 Other long term (current) drug therapy; Z98.890 Other specified postprocedural states

== ENCOUNTER → 2024-10-26 | Outpatient (CLI) | payer OTHER | END | disposition home or self-care (01) | LOC: MAMMO 10-10 08:00 | PROVIDERS: ATTEND Family Medicine | DX: Z12.31 Encounter for screening mammogram for malignant neoplasm of breast (principal); R92.343 Mammographic extreme density, bilateral breasts; R92.1 Mammographic calcification found on diagnostic imaging of breast; N64.89 Other specified disorders of breast ==

== ENCOUNTER → 2024-11-28 | Day surgery (SDC) | payer OTHER ==
[~2024-11-28] VITALS: Ht 147.3 cm; Wt 104.3 kg
[~2024-11-28] MED LIST changes: +GLYCOPYRROLATE IN WATER/PF 0.4 MG/2 ML SYRINGE IV ONE; +Lactated Ringer's Solution 1,000 ML IV ONE; +Lactated Ringer's Solution 1,000 ML IV SCH; +Lidocaine Hydrochloride 5 ML VIAL IV ONE; +PROPOFOL 200 MG/20 ML VIAL IV ONE
[2024-11-28 07:15] VITALS: BP 133/76
[2024-11-28 08:45] VITALS: BP 126/78
[2024-11-28 09:00] VITALS: BP 127/57
[2024-11-28 09:06] VITALS: BP 114/74
== END | disposition home or self-care (01) ==
LOC: SDC 11-24 08:45
PROVIDERS: ATTEND Surgery
DX: Z12.11 Encounter for screening for malignant neoplasm of colon (principal); K63.5 Polyp of colon; K64.4 Residual hemorrhoidal skin tags; K64.8 Other hemorrhoids; I10 Essential (primary) hypertension; E78.00 Pure hypercholesterolemia, unspecified; K21.9 Gastro-esophageal reflux disease without esophagitis; M19.90 Unspecified osteoarthritis, unspecified site; Z98.51 Tubal ligation status; Z90.89 Acquired absence of other organs; Z98.891 History of uterine scar from previous surgery; Z86.16 Personal history of COVID-19; Z87.440 Personal history of urinary (tract) infections; Z98.890 Other specified postprocedural states; Z79.899 Other long term (current) drug therapy; Z91.013 Allergy to seafood; Z91.040 Latex allergy status; Z88.0 Allergy status to penicillin; Z88.2 Allergy status to sulfonamides; Z88.8 Allergy status to other drugs, medicaments and biological substances; Z82.3 Family history of stroke; Z83.3 Family history of diabetes mellitus

== ENCOUNTER → 2025-02-23 | Outpatient (CLI) | payer OTHER ==
[~2025-02-23] MED LIST changes: -GLYCOPYRROLATE IN WATER/PF 0.4 MG/2 ML SYRINGE IV ONE; -Lactated Ringer's Solution 1,000 ML IV ONE; -Lactated Ringer's Solution 1,000 ML IV SCH; -Lidocaine Hydrochloride 5 ML VIAL IV ONE; -PROPOFOL 200 MG/20 ML VIAL IV ONE
[2025-02-23 11:14] LABS: BASO # 0.1 10*3/uL (0.0-0.1); BASO % 1.2 % (0.0-1.0); EOS # 0.3 10*3/uL (0.0-0.4); EOS % 2.7 % (1.0-4.0); HEMATOCRIT 40.7 % (37.0-47.0); MEAN CELL VOLUME 97.4 fl (81.0-99.0); MEAN CORPUSCULAR HGB 31.3 pg (27.0-31.0); MEAN CORPUSCULAR HGB CONC 32.2 g/dl (33.0-37.0); MONO # 0.5 10*3/uL (0.1-1.0); MONO % 5.4 % (3.0-9.0); NEUT # 5.7 10*3/uL (2.3-7.9); NEUT % 61.5 % (47.0-73.0); PLATELET COUNT AUTOMATED 286 10*3/uL (130-400); RED BLOOD COUNT 4.18 10*6/uL (4.10-5.10); RED CELL DISTRI WIDTH 13.4 % (0-14.5); WHITE BLOOD COUNT 9.3 10*3/uL (4.8-10.8)
[2025-02-23 11:44] LABS: ALKALINE PHOSPHATASE 86 U/L (46-116); BUN 20 mg/dl (9-23); CHLORIDE 104 mmol/L (98-107); CHOLESTEROL 140 mg/dL (<200); LDL CHOLESTEROL 59 mg/dL (9-159); POTASSIUM 4.2 mmol/L (3.4-5.1); SGPT/ALT 17 U/L (5-49); TOTAL PROTEIN 7.6 gm/dL (6.0-8.0); TRIGLYCERIDES 143 mg/dl (<150)
== END | disposition home or self-care (01) ==
LOC: LAB 03:47 → RESCLI 03:47
PROVIDERS: ATTEND Student in an Organized Health Care Education/Training Program
DX: M19.042 Primary osteoarthritis, left hand (principal); M19.041 Primary osteoarthritis, right hand; M77.32 Calcaneal spur, left foot; M77.31 Calcaneal spur, right foot; M79.89 Other specified soft tissue disorders; M21.072 Valgus deformity, not elsewhere classified, left ankle; E78.5 Hyperlipidemia, unspecified; M25.50 Pain in unspecified joint; R74.01 Elevation of levels of liver transaminase levels; R60.0 Localized edema

== ENCOUNTER → 2025-03-02 | Outpatient (CLI) | payer OTHER | END | disposition home or self-care (01) | LOC: CARD 03-01 07:30 | PROVIDERS: ATTEND Internal Medicine | DX: I34.0 Nonrheumatic mitral (valve) insufficiency (principal); I51.7 Cardiomegaly; R60.0 Localized edema ==

== ENCOUNTER → 2025-03-15 | Outpatient (CLI) | payer OTHER | END | disposition home or self-care (01) | LOC: RESCLI 00:37 | PROVIDERS: ATTEND Internal Medicine | DX: M19.90 Unspecified osteoarthritis, unspecified site (principal); G89.4 Chronic pain syndrome; E55.9 Vitamin D deficiency, unspecified; K21.9 Gastro-esophageal reflux disease without esophagitis; J30.2 Other seasonal allergic rhinitis; E78.5 Hyperlipidemia, unspecified; H81.13 Benign paroxysmal vertigo, bilateral; L30.9 Dermatitis, unspecified; E66.9 Obesity, unspecified; Z79.899 Other long term (current) drug therapy; Z98.890 Other specified postprocedural states; Z88.0 Allergy status to penicillin; Z88.8 Allergy status to other drugs, medicaments and biological substances ==

== ENCOUNTER 2025-06-13 17:30 | Emergency (ER) | payer OTHER ==
[~2025-06-13] VITALS: Wt 108.4 kg
[2025-06-13] MEDS ORDERED: Kenalog 0.5% Cr15 GM T (18:13)
[2025-06-13] MEDS ORDERED: Dexamethasone Sodium Phospha 10 MG/1 ML VIAL IM ONE (18:15)
== END 2025-06-13 19:08 | disposition home or self-care (01) ==
LOC: ED 17:30
DX: T63.461A Toxic effect of venom of wasps, accidental (unintentional), initial encounter (principal); K21.9 Gastro-esophageal reflux disease without esophagitis; E78.5 Hyperlipidemia, unspecified; M19.90 Unspecified osteoarthritis, unspecified site; Z88.0 Allergy status to penicillin; Z88.1 Allergy status to other antibiotic agents; Z88.2 Allergy status to sulfonamides; Z88.8 Allergy status to other drugs, medicaments and biological substances; Z91.013 Allergy to seafood; Z87.440 Personal history of urinary (tract) infections; Z98.890 Other specified postprocedural states; Z90.89 Acquired absence of other organs; Y92.89 Other specified places as the place of occurrence of the external cause

== ENCOUNTER 2025-08-30 13:24 | Inpatient (IN) | payer OTHER ==
[~2025-08-30] VITALS: Ht 147.3 cm; Wt 108.4 kg
[~2025-08-30 13:24] MED LIST changes: +Kenalog 0.5% Cr15 GM T
[2025-08-30 13:34] VITALS: BP 141/71
[2025-08-30] MEDS ORDERED: SODIUM CHLORIDE 0.9% 1,000 ML IV ONE ×2 (13:45→14:45)
[2025-08-30 14:01] LABS: BASO # 0.1 10*3/uL (0.0-0.1); BASO % 0.7 % (0.0-1.0); EOS # 0.1 10*3/uL (0.0-0.4); EOS % 0.6 % (1.0-4.0); MEAN CELL VOLUME 97.0 fl (81.0-99.0); MEAN CORPUSCULAR HGB 31.4 pg (27.0-31.0); MEAN PLATELET VOLUME 10.2 fl (9.6-12.3); MONO # 1.4 10*3/uL (0.1-1.0); MONO % 7.7 % (3.0-9.0); NEUT # 13.0 10*3/uL (2.3-7.9); NEUT % 73.2 % (47.0-73.0); NUCLEATED RED BLOOD CELL 0.0 % (0.0-0.0); NUCLEATED RED BLOOD CELL 0.0 10*3/uL (0.0-0.0); PLATELET COUNT AUTOMATED 273 10*3/uL (130-400); RED CELL DISTRI WIDTH 13.0 % (0-14.5)
[2025-08-30 14:24] LABS: BUN 18 mg/dl (9-23); SGPT/ALT 22 U/L (5-49)
[2025-08-30 14:26] LABS: BILIRUBIN Negative (Negative); BLOOD Trace-Lysed (Negative); CLARITY Cloudy (Clear); COLOR Yellow (Yellow); KETONE Negative (Negative); LEUKO ESTERASE 1+ (Negative); NITRITE Positive (Negative); PH 7.0 (4.5-8.0); SPECIFIC GRAVITY 1.020 (1.001-1.030); UROBILINOGEN 1.0 E.U./dl (0.0-1.0)
[2025-08-30 14:43] LABS: WBC 31-40 wbc/hpf (0-5)
[2025-08-30 14:44] LABS: BACTERIA 3+; EPITHELIAL CELLS 21-30
[2025-08-30] MEDS ORDERED: ACETAMINOPHEN 325 MG TAB PO PRN (14:50)
[2025-08-30] MEDS ORDERED: Ondansetron Hydrochloride 4 MG/2 ML VIAL IV PRN (14:50)
[2025-08-30] MEDS ORDERED: BISACODYL 10 MG SUPP R PRN (14:50)
[2025-08-30] MEDS ORDERED: Acetaminophen/Hydrocodone 5 MG/325 MG TABLET PO PRN (14:50)
[2025-08-30] MEDS ORDERED: TEMAZEPAM 15 MG CAP PO PRN (14:50)
[2025-08-30] MEDS ORDERED: FLUCONAZOLE 100 MG TAB PO SCH (15:20)
[2025-08-30 15:40] VITALS: BP 153/37
[2025-08-30 20:00] VITALS: BP 144/55
[2025-08-30] MEDS ORDERED: GABAPENTIN 400 MG CAP PO SCH ×2 (22:00→23:00)
[2025-08-31] VITALS: BP 107/66
[2025-08-31 06:13] LABS: BASO # 0.1 10*3/uL (0.0-0.1); BASO % 0.9 % (0.0-1.0); EOS # 0.2 10*3/uL (0.0-0.4); EOS % 1.2 % (1.0-4.0); MEAN CELL VOLUME 98.1 fl (81.0-99.0); MEAN CORPUSCULAR HGB 31.1 pg (27.0-31.0); MEAN PLATELET VOLUME 10.6 fl (9.6-12.3); MONO # 1.1 10*3/uL (0.1-1.0); MONO % 9.0 % (3.0-9.0); NEUT # 8.0 10*3/uL (2.3-7.9); NEUT % 65.9 % (47.0-73.0); NUCLEATED RED BLOOD CELL 0.0 % (0.0-0.0); NUCLEATED RED BLOOD CELL 0.0 10*3/uL (0.0-0.0); PLATELET COUNT AUTOMATED 245 10*3/uL (130-400); RED CELL DISTRI WIDTH 13.3 % (0-14.5)
[2025-08-31 06:30] LABS: BUN 10 mg/dl (9-23); SGPT/ALT 19 U/L (5-49)
[2025-08-31 08:00] VITALS: BP 115/52
[2025-08-31] MEDS ORDERED: Meloxicam 15 MG TAB PO SCH (10:00)
[2025-08-31] MEDS ORDERED: LORATADINE 10 MG TAB PO SCH (10:00)
[2025-08-31] MEDS ORDERED: ATORVASTATIN CALCIUM 40 MG TABLET PO SCH (10:00)
[2025-08-31] MEDS ORDERED: EZETIMIBE 10 MG TAB PO SCH (10:00)
[2025-08-31 12:00] VITALS: BP 111/69
[2025-08-31 16:00] VITALS: BP 115/46
[2025-08-31] MEDS ORDERED: NYSTATIN CREAM 15 GM TUBE T SCH (18:00)
[2025-08-31 20:00] VITALS: BP 125/72
[2025-09-01] VITALS: BP 107/56
[2025-09-01 06:01] LABS: BASO # 0.1 10*3/uL (0.0-0.1); BASO % 1.1 % (0.0-1.0); EOS # 0.3 10*3/uL (0.0-0.4); EOS % 3.0 % (1.0-4.0); MEAN CELL VOLUME 97.7 fl (81.0-99.0); MEAN CORPUSCULAR HGB 30.6 pg (27.0-31.0); MEAN PLATELET VOLUME 11.1 fl (9.6-12.3); MONO # 0.8 10*3/uL (0.1-1.0); MONO % 8.4 % (3.0-9.0); NEUT # 5.7 10*3/uL (2.3-7.9); NEUT % 60.9 % (47.0-73.0); NUCLEATED RED BLOOD CELL 0.0 % (0.0-0.0); NUCLEATED RED BLOOD CELL 0.0 10*3/uL (0.0-0.0); PLATELET COUNT AUTOMATED 256 10*3/uL (130-400); RED CELL DISTRI WIDTH 13.2 % (0-14.5)
[2025-09-01 08:00] VITALS: BP 126/68
[2025-09-01] MEDS ORDERED: NYSTATIN CREAM15 GM T (11:29)
[2025-09-01] MEDS ORDERED: CEPHALEXIN500 M1 PO (11:34)
== END 2025-09-01 12:20 | disposition home or self-care (01) | DRG 872 ==
LOC: ED 13:24 → EDHOLD 14:54 → 4E 14:54
PROVIDERS: Internal Medicine; Nurse Practitioner Family; ADMIT Family Medicine; ATTEND Family Medicine
DX: A41.51 Sepsis due to Escherichia coli [E. coli] (principal); N30.00 Acute cystitis without hematuria; K21.9 Gastro-esophageal reflux disease without esophagitis; E78.5 Hyperlipidemia, unspecified; G62.9 Polyneuropathy, unspecified; D64.9 Anemia, unspecified; B37.9 Candidiasis, unspecified; Z88.0 Allergy status to penicillin; Z88.2 Allergy status to sulfonamides; Z88.8 Allergy status to other drugs, medicaments and biological substances; Z91.018 Allergy to other foods; Z91.09 Other allergy status, other than to drugs and biological substances; Z79.899 Other long term (current) drug therapy; Z79.01 Long term (current) use of anticoagulants; Z79.2 Long term (current) use of antibiotics; Z98.891 History of uterine scar from previous surgery; Z82.49 Family history of ischemic heart disease and other diseases of the circulatory system; Z83.3 Family history of diabetes mellitus; Z82.3 Family history of stroke; Z87.442 Personal history of urinary calculi